=== PATIENT | female | born 1975 | race Caucasian/White ===

== ENCOUNTER 2020-01-25 10:53 | Inpatient (IN) | payer BC, SELFPAY ==
[2020-01-25] VITALS (69 sets, daily range): BP systolic 103–130; BP diastolic 67–95; PULSE 79–120; RESP 14–39; TEMP 37.3–38.8; O2SAT 87–98; BMI 26.5
--- NOTE | 2020-01-25 11:09 | ED_ITS ---
HPI - SOB/Dyspnea General: Chief Complaint: Shortness of Breath/Dyspnea Stated Complaint: Coughing/lung pain/chest pains Time Seen by Provider: 01/25/20 10:58 History of Present Illness: HPI Narrative: 44-year-old female presents emergency room with acute shortness of breath. Her initial symptoms began about 8 to 10 days ago after she had picked up her daughter from college. [employer] close due to the [place] pandemic. Her daughter was sick for just a couple of days. Her daughter has not been tested neither is anyone in her family her is also been sick with a low-grade fever and a mild cough. Her cough is gotten progressively worse to the point where she was extremely dyspneic on arrival here was also hypoxic with a O2 sat in the mid 80s requiring 2 to 3 L by nasal cannula which raised her sats up to 92-94. She reports a fever at home of up to 101-103 and a nonproductive cough. She has no other underlying medical history no history respiratory coronary artery disease no history of any kind of cardiac issues. MD elicited complaint: shortness of breath and cough (Nonproductive) Associated symptoms: Reports chest congestion and orthopnea; Deny abdominal pain, chest pain, fever(s), nausea or vomiting Review of Systems Const: Denies: fever, chills, body aches, change in appetite, fatigue or malaise ENMT: Denies: throat pain, ear pain, nasal discharge or nasal congestion Card: Reports: shortness of breath on exertion and shortness of breath when lying down; Denies: chest pain or edema Resp: Reports: shortness of breath, non-productive cough, wheezing and chest congestion; Denies: productive cough GI: Denies: abdominal pain, nausea, vomiting, vomiting blood, coffee grounds in vomit, diarrhea, constipation, bloating, blood in stool or black tarry stool : Denies: flank pain, difficulty urinating, painful urination, urinary frequency or urinary urgency Skin/Breast: Denies: rash or itching [facility] ED PFSH: Social History (Updated 01/25/20 @ 14:19 by Yevgeniy Nevarez MD) Smoking and tobacco status: never smoked Alcohol intake: never Substance/Drug Use: never Physical Exam Const: COMMON NORMALS: no apparent distress GENERAL APPEARANCE: cooperative and comfortable ORIENTATION/CONSCIOUSNESS: Yes awake, Yes oriented to person, Yes oriented to place and Yes oriented to time HENMT: COMMON NORMALS: normocephalic, head/scalp atraumatic, hearing grossly normal bilaterally, external ears normal, EAC's normal, TM's normal bilaterally, nasal mucous membranes and turbinates normal, moist oral mucous membranes and oropharynx normal HEAD & SCALP: normocephalic and atraumatic NOSE: nasal mucous membranes and turbinates normal EXTERNAL EAR: Yes external ears normal EXTERNAL AUDITORY CANAL: EAC's normal TYMPANIC MEMBRANE: TM's normal bilaterally Eye: COMMON NORMALS: PERRL, EOMs intact bilaterally, conjunctivae normal and no scleral icterus CONJUNCTIVA: Yes conjunctivae normal PUPIL: Yes PERRL Neck/C-Spine: COMMON NORMALS: full ROM, no lymphadenopathy, supple and no JVD Lymph: LYMPHATIC: no lymphadenopathy noted and no lymphedema noted Resp: COMMON NORMALS: normal respiratory effort, no retractions and no use of accessory muscles EFFORT & INSPECTION: Yes tachypneic, Yes respiratory distress, Yes labored, Yes actively coughing and Yes audible wheezes AUSCULTATION: rhonchi and wheezes Cardio: COMMON NORMALS: no JVD, regular rhythm and no murmurs RATE: tachycardic RHYTHM: regular rhythm GI: COMMON NORMALS: soft to palpation and no hepatosplenomegaly AUSCULTATION: Yes normoactive bowel sounds PALPATION: Yes soft, No tender, No guarding and Yes no hepatosplenomegaly Extremity: COMMON NORMALS: normal to inspection, normal capillary refill, no clubbing, cyanosis or edema, no calf tenderness and no pedal edema Neuro: SENSORIUM/ORIENTATION: Yes oriented to person, Yes oriented to place and Yes oriented to time Skin: COMMON NORMALS: no rashes or lesions noted GENERAL SKIN EXAM: no rashes or lesions noted Course Vital Signs: Vital signs: Vital Signs Temperature 98.2 F 01/27/20 00:00 Pulse Rate 69 01/27/20 06:00 Respiratory Rate 33 H 01/27/20 06:00 Blood Pressure 118/81 01/27/20 06:00 Pulse Oximetry 97 01/27/20 06:00 MDM - SOB/Dyspnea Lab Data: Labs: Lab Results 01/25/20 01/25/20 01/25/20 Range/Units 11:40 11:40 11:40 WBC 6.5 (4.0-10.0) 10^3/ uL RBC 4.31 (4.1-5.3) 10^6/u L Hgb 13.6 (11.5-15.3) g/dL Hct 40.8 (37.0-47.0) % MCV 94.7 (81-99) fL MCH 31.6 (28.0-34.0) pg MCHC 33.3 (30.0-36.0) g/dL RDW 11.9 L (12.1-15.1) % Plt Count 204 (130-400) 10^3/c mm MPV 11.6 H (7.4-10.4) fL Neut % (Auto) 82.2 % Lymph % (Auto) 12.5 % Piute % (Auto) 4.3 % Eos % (Auto) 0.0 % Baso % (Auto) 0.2 % Neut # (Auto) 5.4 (1.8-7.7) 10^3/u L Lymph # (Auto) 0.8 (0.8-4.8) 10^3/u L Pi[place] # (Auto) 0.3 (0.2-0.9) 10^3/u L Eos # (Auto) 0.0 (0.0-0.8) 10^3/u L Baso # (Auto) 0.0 (0.0-0.1) 10^3/u L Nucleated RBC % (a uto) 0 % Nucleated RBCs # 0.0 /100WBC D-Dimer 2.54 H (0-0.59) ug/mIFE U Specimen Type Sample Site ABG pH (7.35-7.45) ABG pCO2 (35-45) mmHg ABG pO2 (80.0-100.0) mmH g ABG HCO3 (22-26) mmol/L ABG Base Excess (-2.0-2.0) mmol/ L Branden Test Hematocrit (37-47) % O2 Delivery Device O2 Liters/Min % Paralegal Specialist ID Sodium 132 L (136-145) mmol/L Potassium 4.0 (3.5-5.1) mmol/L Chloride 91 L (98-107) mmol/L Carbon Dioxide 23 (22-29) mmol/L Anion Gap 22.0 H (5-19) BUN 15 (6-20) mg/dL Creatinine 1.1 H (0.5-0.9) mg/dL GFR Calculation 54.2 L (90-130) mL/min Glucose 111 (65-115) mg/dL Calculated Osmolal ity 271 L (285-295) mOsm/k g Lactic Acid (0.5-2.2) mmol/L Calcium 9.8 (8.5-10.5) mg/dL Magnesium 2.2 (1.7-2.3) mg/dL Ferritin 1777 H (15-150) ng/mL Total Bilirubin 0.5 (0.15-1.2) mg/dL AST 27 (0-32) U/L ALT 12 (0-33) U/L Alkaline Phosphata se 62 (35-105) IU/L Lactate Dehydrogen ase 371 H (135-214) U/L Creatine Kinase 75 (26-192) U/L Total Protein 8.4 (6.6-8.7) g/dL Albumin 3.8 (3.5-5.2) g/dL Globulin 4.6 (1.3-4.6) g/dL HCG, Qual (Negative) Nasal/Oral COVID-1 9 PCR Influenza Type A A g (Negative) Influenza Type B A g (Negative) 01/25/20 01/25/20 01/25/20 Range/Units 11:40 11:40 11:41 WBC (4.0-10.0) 10^3/ uL RBC (4.1-5.3) 10^6/u L Hgb (11.5-15.3) g/dL Hct (37.0-47.0) % MCV (81-99) fL MCH (28.0-34.0) pg MCHC (30.0-36.0) g/dL RDW (12.1-15.1) % Plt Count (130-400) 10^3/c mm MPV (7.4-10.4) fL Neut % (Auto) % Lymph % (Auto) % Piute % (Auto) % Eos % (Auto) % Baso % (Auto) % Neut # (Auto) (1.8-7.7) 10^3/u L Lymph # (Auto) (0.8-4.8) 10^3/u L Piute # (Auto) (0.2-0.9) 10^3/u L Eos # (Auto) (0.0-0.8) 10^3/u L Baso # (Auto) (0.0-0.1) 10^3/u L Nucleated RBC % (a uto) % Nucleated RBCs # /100WBC D-Dimer (0-0.59) ug/mIFE U Specimen Type Arterial Sample Site Radial, left ABG pH 7.54 H (7.35-7.45) ABG pCO2 24.5 L (35-45) mmHg ABG pO2 102.0 H (80.0-100.0) mmH g ABG HCO3 21.0 L (22-26) mmol/L ABG Base Excess 0.0 (-2.0-2.0) mmol/ L Branden Test Pos Hematocrit 41.4 (37-47) % O2 Delivery Device Nc O2 Liters/Min 1.5 % Paralegal Specialist ID cak Sodium (136-145) mmol/L Potassium (3.5-5.1) mmol/L Chloride (98-107) mmol/L Carbon Dioxide (22-29) mmol/L Anion Gap (5-19) BUN (6-20) mg/dL Creatinine (0.5-0.9) mg/dL GFR Calculation (90-130) mL/min Glucose (65-115) mg/dL Calculated Osmolal ity (285-295) mOsm/k g Lactic Acid 1.8 (0.5-2.2) mmol/L Calcium (8.5-10.5) mg/dL Magnesium (1.7-2.3) mg/dL Ferritin (15-150) ng/mL Total Bilirubin (0.15-1.2) mg/dL AST (0-32) U/L ALT (0-33) U/L Alkaline Phosphata se (35-105) IU/L Lactate Dehydrogen ase (135-214) U/L Creatine Kinase (26-192) U/L Total Protein (6.6-8.7) g/dL Albumin (3.5-5.2) g/dL Globulin (1.3-4.6) g/dL HCG, Qual Negative (Negative) Nasal/Oral COVID-1 9 PCR Influenza Type A A g (Negative) Influenza Type B A g (Negative) 01/25/20 01/25/20 Range/Units 11:48 11:48 WBC (4.0-10.0) 10^3/ uL RBC (4.1-5.3) 10^6/u L Hgb (11.5-15.3) g/dL Hct (37.0-47.0) % MCV (81-99) fL MCH (28.0-34.0) pg MCHC (30.0-36.0) g/dL RDW (12.1-15.1) % Plt Count (130-400) 10^3/c mm MPV (7.4-10.4) fL Neut % (Auto) % Lymph % (Auto) % Piute % (Auto) % Eos % (Auto) % Baso % (Auto) % Neut # (Auto) (1.8-7.7) 10^3/u L Lymph # (Auto) (0.8-4.8) 10^3/u L [place] # (Auto) (0.2-0.9) 10^3/u L Eos # (Auto) (0.0-0.8) 10^3/u L Baso # (Auto) (0.0-0.1) 10^3/u L Nucleated RBC % (a uto) % Nucleated RBCs # /100WBC D-Dimer (0-0.59) ug/mIFE U Specimen Type Sample Site ABG pH (7.35-7.45) ABG pCO2 (35-45) mmHg ABG pO2 (80.0-100.0) mmH g ABG HCO3 (22-26) mmol/L ABG Base Excess (-2.0-2.0) mmol/ L Branden Test Hematocrit (37-47) % O2 Delivery Device O2 Liters/Min % Paralegal Specialist ID Sodium (136-145) mmol/L Potassium (3.5-5.1) mmol/L Chloride (98-107) mmol/L Carbon Dioxide (22-29) mmol/L Anion Gap (5-19) BUN (6-20) mg/dL Creatinine (0.5-0.9) mg/dL GFR Calculation (90-130) mL/min Glucose (65-115) mg/dL Calculated Osmolal ity (285-295) mOsm/k g Lactic Acid (0.5-2.2) mmol/L Calcium (8.5-10.5) mg/dL Magnesium (1.7-2.3) mg/dL Ferritin (15-150) ng/mL Total Bilirubin (0.15-1.2) mg/dL AST (0-32) U/L ALT (0-33) U/L Alkaline Phosphata se (35-105) IU/L Lactate Dehydrogen ase (135-214) U/L Creatine Kinase (26-192) U/L Total Protein (6.6-8.7) g/dL Albumin (3.5-5.2) g/dL Globulin (1.3-4.6) g/dL HCG, Qual (Negative) Nasal/Oral COVID-1 9 PCR Detected Influenza Type A A g Negative (Negative) Influenza Type B A g Negative (Negative) Discharge Plan Discharge Patient Disposition: Admitted As Inpatient Admit Provider: Yevgeniy Nevarez Clinical Impression: COVID-19 virus infection, Pneumonia Condition: Stable Interventions: ED Discharge Assessment Last Done: 01/25/20 14:07 Discharge Date/Time: 01/25/20 14:30 Coding Level of Care Code 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
--- NOTE | 2020-01-25 11:12 | XR_ITS ---
WS: [id number] CHEST XRAY TECHNIQUE: Portable chest. CLINICAL INFORMATION: dyspnea COMPARISON: None. FINDINGS: Shallow inspiration. Heart: Normal cardiac silhouette. Lungs: Bilateral patchy perihilar and left lower lobe infiltrates. Subsegmental atelectasis right upp er lobe. Recommend correlation for pneumonia. No focal consolidation. Bones: Mild thoracic curve convex right. XR/XR chest 1V portable [id number] IMPRESSION: 1. Bilateral patchy perihilar and left lower lobe infiltrates. Recommend corre lation for pneumonia. 2. No focal consolidation. 3. Normal cardiac silhouette.
[2020-01-25 11:51] LABS: ABG PCO2 24.5 mmHg (35-45); ABG PH Result 7.54 (7.35-7.45); Arterial Blood Gas Hematocrit 41.4 % (37-47); Blood Gas Allen Test Pos; Blood Gas LPM 1.5 %; Blood Gas Sample Site Radial, left; Blood Gas Sample Type Arterial; Oxygen Device NC
[2020-01-25 11:59] LABS: Basophils % 0.2 %; Hematocrit 40.8 % (37.0-47.0); Hemoglobin 13.6 g/dL (11.5-15.3); Lymphocytes # 0.8 10^3/uL (0.8-4.8); Lymphocytes % 12.5 %; Mean Corpuscular HGB Conc 33.3 g/dL (30.0-36.0); Mean Corpuscular Hemoglobin 31.6 pg (28.0-34.0); Mean Corpuscular Volume 94.7 fL (81-99); Mean Platelet Volume 11.6 fL (7.4-10.4); Monocytes # 0.3 10^3/uL (0.2-0.9); Monocytes % 4.3 %; Neutrophils # 5.4 10^3/uL (1.8-7.7); Neutrophils % 82.2 %; Nucleated Red Blood Cells % 0 %; Platelet Count 204 10^3/cmm (130-400); Red Blood Count 4.31 10^6/uL (4.1-5.3); Red Cell Distribution Width 11.9 % (12.1-15.1); White Blood Count 6.5 10^3/uL (4.0-10.0)
[2020-01-25] MEDS: sodium chloride 0.9% 1,000 ML 75 ML IV ×2 (12:00→15:19)
[2020-01-25 12:14] LABS: D Dimer 2.54 ug/mIFEU (0-0.59)
[2020-01-25 12:17] LABS: Lactic Sepsis W/Reflex 1.8 mmol/L (0.5-2.2)
[2020-01-25 12:18] LABS: Alanine Aminotransferase 12 U/L (0-33); Albumin Level 3.8 g/dL (3.5-5.2); Alkaline Phosphatase 62 IU/L (35-105); Aspartate Amino Transferase 27 U/L (0-32); Blood Urea Nitrogen 15 mg/dL (6-20); Calcium 9.8 mg/dL (8.5-10.5); Carbon Dioxide 23 mmol/L (22-29); Chloride 91 mmol/L (98-107); Creatine Phosphokinase 75 U/L (26-192); Globulin 4.6 g/dL (1.3-4.6); Glomerular Filtration Rate 54.2 mL/min (90-130); Glucose 111 mg/dL (65-115); Lactate Dehydrogenase 371 U/L (135-214); Magnesium 2.2 mg/dL (1.7-2.3); Osmolality Calculated 271 mOsm/kg (285-295); Sodium 132 mmol/L (136-145); Total Bilirubin 0.5 mg/dL (0.15-1.2); Total Protein 8.4 g/dL (6.6-8.7)
[2020-01-25 12:29] LABS: Influenza A by IFA Negative (Negative); Influenza B by IFA Negative (Negative)
[2020-01-25 12:30] LABS: Ferritin 1777 ng/mL (15-150)
[2020-01-25 13:52] LABS: HCG, Serum Qual Negative (Negative)
--- NOTE | 2020-01-25 13:59 | PM.HP ---
Providers/Chief Complaint Admitting Physician: Yevgeniy Nevarez MD Primary Care Provider: Clau Arrington DO Chief Complaint: Coughing/lung pain/chest pains History of Present Illness Chio Mclean is a 44 year old female who presents to the hospital with complaints of fever, shortness of breath, cough. She reports she has been ill for at least 7 to 10 days. She reports body aches, cough that is usually not productive, chest discomfort with coughing, full body aches. She reports she has been exposed to her daughter who was ill previous to her who had exposure to other college students testing positive for Covid 19. is also been ill with symptoms. She reports her shortness of breath was worsening and that prompted her to come in. She has not been eating as well. She has been drinking fluids better in the last day. Review of Systems General: Reports: 10 or more systems reviewed and unremarkable except in HPI and below Const: Reports: fever, chills, body aches, change in appetite, fatigue, malaise, night sweats and diaphoresis Eyes: Denies: change in vision ENMT: Denies: throat pain Card: Reports: chest pain (Only with movement, coughing) Resp: Reports: shortness of breath and non-productive cough GI: Denies: abdominal pain : Denies: flank pain or difficulty urinating Musc: Denies: neck pain Skin/Breast: Denies: rash Neuro: Reports: numbness in extremities Psych: Denies: anxiety or depression Endo: Denies: excessive urination Yohan/Lymph: Denies: easy bruising All/Imm: Denies: hives Medications/Allergies Home Medications Medication Instructions Recorded Confirmed Last Taken Type No Known Home Medications 01/25/20 01/25/20 Unknown History Allergies Allergy/AdvReac Type Severity Reaction Status Date / Time No Known Allergies Allergy Verified 01/25/20 11:10 PFSH Acute PFSH: Social History (Updated 01/25/20 @ 14:19 by Yevgeniy Nevarez MD) Smoking and tobacco status: never smoked Alcohol intake: never Substance/Drug Use: never Supplemental PFSH Information: Patient denies any significant past medical history, past surgical history. She denies any significant family history and reports both parents are healthy. Vitals/I&O/Wt Last Vital Signs Temp 101.9 F H 01/25/20 11:00 Pulse 118 H 01/25/20 11:00 Resp 26 H 01/25/20 11:00 Pulse Ox 87 L 01/25/20 11:57 Weight last 48 hrs Weight 68.039 kg Physical Exam Narrative: EXAM NARRATIVE: Uncomfortable appearing white female, with mild respiratory distress with occasional cough. HEENT: Pupils equally round. Oropharynx clear. Neck is supple no lymphadenopathy or thyromegaly Cardiovascular tachycardic, no murmur Lungs few scattered rhonchi that appear to clear with coughing Abdomen is soft with positive bowel sounds. No obvious organomegaly. No tenderness. was deferred Extremities no cyanosis clubbing or edema, cap refill brisk Skin no rash Neuro no focal deficits Data : 01/25/20 11:40 01/25/20 11:40 Micro: Microbiology 01/25/20 11:42 Blood Culture - Preliminary Blood SPECIMEN COLLECTED 01/25/20 11:40 Blood Culture - Preliminary Blood SPECIMEN COLLECTED Other data: D-dimer is elevated at 2.54 pH 7.54, PCO2 24, PO2 102. Elevated ferritin at 1777 Elevated LDH at 371 Influenza swab negative hCG negative Chest x-ray shows bilateral lower lobe infiltrates, no consolidation, plate-like atelectasis right upper lobe A&P Assessment and plan (1) Pneumonia: Very concerning that this may be a case of Covid 19. Chest x-ray demonstrates bilateral infiltrates. Right upper lobe platelet atelectasis. White blood cell count normal with borderline lymphopenia. Liver function tests are normal. Acute phase reactants are elevated. LDH elevated. Covid 19 test is pending Influenza negative At this point linezolid, Levaquin, Zosyn have been started in the ER. I will continue Zosyn. Add Plaquenil, Zithromax. Monitor QT interval. Discussed briefly with pulmonary. Covid 19 isolation precautions Check EKG Consider Plaquenil, doxycycline. Hydration We will try to avoid nebulized treatments Supplemental oxygen as needed Check viral PCR. Status: Acute (2) Respiratory failure: Secondary to above Status: Acute (3) Acute kidney injury: Will hydrate. Repeat laboratory in the morning Status: Acute Attestations Medical Necessity Statement*: Will need greater than 2 midnight stay for IV antibiotics secondary to pneumonia Time Spent in Patient Care: Greater than 35 minutes Coding Level of Care Code Acute Manager [employer] Fwd Diagnoses Pneumonia J18.9 Respiratory failure J96.90 Acute kidney injury N17.9
[2020-01-25] MEDS: levofloxacin-dextrose 5 % 750 MG/150 ML PREMIX 150 MG IV (14:00)
[2020-01-25] MEDS: linezolid premix 600 MG/300 ML PREMIX 300 MG IV (14:00)
--- NOTE | 2020-01-25 14:10 | ECG_ITS ---
Measurements Intervals [place] Rate: 95 P: 32 [place]: 153 QRS: -24 QRSD: 109 T: 21 QT: 359 QTc: 452 SINUS RHYTHM BORDERLINE LEFT AXIS DEVIATION [QRS AXIS < -20] LOW QRS VOLTAGE IN PRECORDIAL LEADS [QRS DEFLECTION < 1.0 mV IN CHEST LEADS] PATTERN CONSISTENT WITH PULMONARY DISEASE WARNING: DATA QUALITY MAY AFFECT INTERPRETATION No previous ECG available for comparison Electronically Signed On 01-25-2020 18:36:45 CDT by Ethel Armstrong M.D. [id number]
[2020-01-25] MEDS: enoxaparin 40 mg/0.4 mL Syringe SUBCUT (15:19)
[2020-01-25] MEDS: azithromycin 250 mg Tablet 500 MG PO (15:19)
[2020-01-25] MEDS: piperacillin-tazobactam 3.375 GM in sodium chloride 0.9% (plus) 50 ML IV ×2 (15:19→23:17)
[2020-01-25] MEDS: hydroxychloroquine 200 mg Tablet 400 MG PO (15:40)
[2020-01-25] MEDS: albuterol 8 gm MDI 2 PUFF INHALATION (15:45)
[2020-01-25] MEDS: acetaminophen 325 mg Tablet 650 MG PO (21:50)
[2020-01-26] VITALS (22 sets, daily range): BP systolic 104–128; BP diastolic 69–85; PULSE 71–96; RESP 19–39; TEMP 36.8–36.9; O2SAT 91–99
[2020-01-26] MEDS: hydroxychloroquine 200 mg Tablet 400 MG PO (01:54)
[2020-01-26] MEDS: guaiFENesin 100 mg/5 mL UDC 10 mL 400 MG PO (01:54)
[2020-01-26 04:55] LABS: Hematocrit 33.5 % (37.0-47.0); Hemoglobin 11.1 g/dL (11.5-15.3); Lymphocytes # 0.7 10^3/uL (0.8-4.8); Lymphocytes % 19.4 %; Mean Corpuscular HGB Conc 33.1 g/dL (30.0-36.0); Mean Corpuscular Hemoglobin 32.5 pg (28.0-34.0); Mean Platelet Volume 10.8 fL (7.4-10.4); Monocytes # 0.3 10^3/uL (0.2-0.9); Monocytes % 7.5 %; Neutrophils # 2.6 10^3/uL (1.8-7.7); Neutrophils % 72.3 %; Nucleated Red Blood Cells % 0 %; Platelet Count 171 10^3/cmm (130-400); Red Blood Count 3.42 10^6/uL (4.1-5.3); Red Cell Distribution Width 12.1 % (12.1-15.1); White Blood Count 3.6 10^3/uL (4.0-10.0)
[2020-01-26 05:25] LABS: Anion Gap 15.9 (5-19); Blood Urea Nitrogen 10 mg/dL (6-20); Carbon Dioxide 24 mmol/L (22-29); Chloride 98 mmol/L (98-107); Glomerular Filtration Rate 68.3 mL/min (90-130); Glucose 102 mg/dL (65-115); Osmolality Calculated 274 mOsm/kg (285-295); Potassium 3.9 mmol/L (3.5-5.1); Sodium 134 mmol/L (136-145)
[2020-01-26 06:07] LABS: Slide Review Slide Review Perform
[2020-01-26] MEDS: sodium chloride 0.9% 1,000 ML 75 ML IV (06:07)
[2020-01-26] MEDS: piperacillin-tazobactam 3.375 GM in sodium chloride 0.9% (plus) 50 ML IV (06:09)
--- NOTE | 2020-01-26 07:42 | PC.NURSE ---
Pt up to BSC, pt became SOB. Pt returned to bed in prone position.
[2020-01-26 08:01] LABS: Coronavirus Lab Test PTC DETECTED
--- NOTE | 2020-01-26 09:21 | P.PN_ITS ---
Subjective Subjective: Interval history: Patient awake in bed at time of exam this morning. She reported shortness of breath with any movement. She is unable to walk short distances without having coughing spells. Reports fever, dry cough and body aches. She noted symptoms began over 7 days ago. Cough has been present for many days. She reports no past medical problems, denies taking any medications at home. She noted that she has been feeling poorly but kept putting off coming to the hospital but became so short of breath that she could not stay at home longer. Vitals/I&O/Wt Last Vital Signs Temp 98.2 F 01/26/20 05:00 Pulse 87 01/26/20 08:23 Resp 20 H 01/26/20 08:23 BP 104/81 01/26/20 06:00 Pulse Ox 96 01/26/20 08:23 01/25/20 01/26/20 01/26/20 22:59 06:59 14:59 Intake Total 598.75 / 598.75 1050 / 1648.75 Output Total 800 / 800 300 / 300 Balance 598.75 / 598.75 250 / 848.75 -300 / -300 Weight last 48 hrs Weight 68.039 kg Physical Exam 2 Const: COMMON NORMALS: oriented x3 GENERAL APPEARANCE: cooperative and ill appearing ORIENTATION/CONSCIOUSNESS: Yes awake, Yes oriented to person, Yes oriented to place and Yes oriented to time HENMT: COMMON NORMALS: normocephalic and head/scalp atraumatic HEAD & SCALP: normocephalic and atraumatic Eye: COMMON NORMALS: PERRL PUPIL: Yes PERRL Neck/C-Spine: COMMON NORMALS: supple GENERAL: Yes normal visual inspection Resp: EFFORT & INSPECTION: Yes symmetric chest movement, Yes tachypneic and Yes actively coughing AUSCULTATION: no rhonchi and no wheezes Cardio: COMMON NORMALS: regular rate, regular rhythm and no murmurs RATE: regular rate RHYTHM: regular rhythm GI: COMMON NORMALS: soft to palpation and non-tender INSPECTION: No abdom inal distension AUSCULTATION: Yes normoactive bowel sounds PALPATION: Yes soft Extremity: COMMON NORMALS: no clubbing, cyanosis or edema and no calf tenderness Neuro: COMMON NORMALS: oriented x3, CN's II-XII intact bilaterally, moves all extremities and no focal motor deficits SENSORIUM/ORIENTATION: Yes oriented to person, Yes oriented to place and Yes oriented to time SPEECH: speech normal Psych: COMMON NORMALS: mental status grossly normal and cooperative Skin: COMMON NORMALS: no rashes or lesions noted GENERAL SKIN EXAM: no rashes or lesions noted Data : 01/26/20 04:11 01/26/20 04:11 Micro: Microbiology 01/25/20 11:42 Blood Culture - Preliminary Blood SPECIMEN COLLECTED 01/25/20 11:40 Blood Culture - Preliminary Blood SPECIMEN COLLECTED A&P Assessment and plan (1) COVID-19 virus infection: COVID-19 PCR returned positive Patient with fever, cough, shortness of breath with any exertion and hypoxia Requiring 2L by NC at this time and remains tachypnic Continue on Plaquenil, given 400mg q12h for 1 day and will transition to 200mg q12hr now Given Azithromycin on admission, QT interval within normal limits at this time. Repeat EKG today and continue azithromycin at 250mg pending ekg results Continue supportive care Status: Acute (2) Respiratory failure: secondary to COVID 19 viral pnuemonia Continue oxygen per protocol Albuterol PRN Plan for treatment as above Continue with self proning intermittently Status: Acute (3) Pneumonia: Viral pneumonia as above, will discontinue Zosyn at this time Status: Acute Additional A&P Information DVT ppx: Lovenox Diet: Regular diet Code status: Full code Attestations Medical Necessity Statement*: Requires hospitalization due to viral pneumonia with COVID-19, hypoxia and respiratory distress Coding Level of Care Code Acute 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
--- NOTE | 2020-01-26 09:23 | PC.NURSE ---
Patient transported from ICU room 6 to VICU room 1. Moved via bed with Dr. Burger at bedside for transport. Patient A&O,2L NC. Sats 94%. Coughing noted with exertion. Once into VICU, patient transferred from bed to [facility] and placed on monitors. Full diet breakfast tray given to patient, patient sitting up in bed eating without difficulty. Call button in reach.
--- NOTE | 2020-01-26 09:30 | PC.NURSE ---
Patient is not in distress at present time but breathing is noted to be labored. At rest it is not noticeable, but with any exertion work of breathing becomes difficult.
--- NOTE | 2020-01-26 09:32 | PC.NURSE ---
Patient c/o feeling achy intermittently but rates current pain level at 0.
--- NOTE | 2020-01-26 09:52 | ECG_ITS ---
Measurements Intervals [place] Rate: 83 P: 27 OR: 156 QRS: -24 QRSD: 118 T: 3 QT: 375 QTc: 441 SINUS RHYTHM LOW QRS VOLTAGE IN PRECORDIAL LEADS [QRS DEFLECTION < 1.0 mV IN CHEST LEADS] INCOMPLETE RIGHT BUNDLE BRANCH BLOCK [90+ ms QRS DURATION, TERMINAL R IN V1/V2, 40+ ms S IN I/aVL/V4/V5/V6] POSSIBLE ANTERIOR MYOCARDIAL INFARCTION [30 ms Q WAVE IN V3/V4, OR R < 0.2 mV IN V4 V4], PROBABLY OLD Compared to ECG 01/25/2020 17:33:44 Incomplete right bundle-branch block now present Myocardial infarct finding now present Electronically Signed On 01-27-2020 18:05:26 CDT by Bruna Lux M.D. [id number]
--- NOTE | 2020-01-26 11:29 | PC.NURSE ---
Patient from [facility] to [facility] [place] with moderate assistance. Tolerated activity fair. Requests one Tylenol. Will administer medication when received from pharmacy.
[2020-01-26] MEDS: acetaminophen 325 mg Tablet PO ×4 (11:30→22:25)
--- NOTE | 2020-01-26 12:54 | PC.NURSE ---
Patient sat up in bed to feed self lunch. Tolerated well. Awake and watching tv now. Had good appetite for lunch.
[2020-01-26] MEDS: enoxaparin 40 mg/0.4 mL Syringe SUBCUT (14:30)
[2020-01-26] MEDS: hydroxychloroquine 200 mg Tablet PO (14:30)
--- NOTE | 2020-01-26 15:29 | PC.NURSE ---
Medications given after verification of wrist band and five rights.
--- NOTE | 2020-01-26 16:47 | PC.NURSE ---
Patient is in prone position. Tolerating well.
--- NOTE | 2020-01-26 18:08 | PC.NURSE ---
Sitting up in bed eating dinner without difficulty. Has had intermittent coughing spells with sats temporarily decreasing as low as upper 70s or a few seconds then returning to baseline.
--- NOTE | 2020-01-26 19:00 | PC.NURSE ---
Shift Change Pt in bed w/ report of headache, tylenol administered. Pt sating mid 90's on 2L nc. Other VSS, afebrile - charted. Pt had exertional sob when getting up to bsc, desating to high 80's - pt recovered quickly. C/O chest pressure with HOB less than 45 degrees. Pt coughing has improved since prior noc shift. Will continue to monitor. Oral care performed by pt.
[2020-01-27] VITALS (39 sets, daily range): BP systolic 97–132; BP diastolic 67–94; PULSE 61–85; RESP 2–39; TEMP 36.3–36.9; O2SAT 90–98
--- NOTE | 2020-01-27 01:06 | PC.NURSE ---
No change in pt status at this time. Repositioned frequently due to bed/comfort.
[2020-01-27] MEDS: hydroxychloroquine 200 mg Tablet PO ×2 (02:46→15:13)
[2020-01-27 04:36] LABS: Basophils % 0.4 %; Eosinophils % 1.6 %; Hematocrit 32.9 % (37.0-47.0); Hemoglobin 10.9 g/dL (11.5-15.3); Lymphocytes % 40.4 %; Mean Corpuscular HGB Conc 33.1 g/dL (30.0-36.0); Mean Corpuscular Hemoglobin 32.2 pg (28.0-34.0); Mean Corpuscular Volume 97.1 fL (81-99); Mean Platelet Volume 10.7 fL (7.4-10.4); Monocytes # 0.3 10^3/uL (0.2-0.9); Monocytes % 13.2 %; Neutrophils # 1.1 10^3/uL (1.8-7.7); Neutrophils % 42.8 %; Nucleated Red Blood Cells % 0 %; Platelet Count 191 10^3/cmm (130-400); Red Blood Count 3.39 10^6/uL (4.1-5.3); Red Cell Distribution Width 12.4 % (12.1-15.1); White Blood Count 2.5 10^3/uL (4.0-10.0)
[2020-01-27] MEDS: TRAMadol 50 mg Tablet PO ×2 (04:44→20:14)
[2020-01-27 04:56] LABS: Creatine Phosphokinase 52 U/L (26-192)
[2020-01-27 04:57] LABS: D Dimer 1.17 ug/mIFEU (0-0.59)
[2020-01-27 05:00] LABS: Anion Gap 17.8 (5-19); Blood Urea Nitrogen 7 mg/dL (6-20); Calcium 9.2 mg/dL (8.5-10.5); Carbon Dioxide 24 mmol/L (22-29); Chloride 101 mmol/L (98-107); Glomerular Filtration Rate 91.3 mL/min (90-130); Glucose 100 mg/dL (65-115); Lactate Dehydrogenase 283 U/L (135-214); Osmolality Calculated 284 mOsm/kg (285-295); Potassium 3.8 mmol/L (3.5-5.1); Sodium 139 mmol/L (136-145)
[2020-01-27 05:37] LABS: Ferritin 1604 ng/mL (15-150)
[2020-01-27 05:45] LABS: Slide Review Slide Review Perform
--- NOTE | 2020-01-27 07:28 | PC.NURSE ---
Upon initial assessment, patient found to be resting in bed with eyes closed. Is drowsy. Oriented. Answers questions appropriately. Doesn't feel up to eating breakfast right now but tray left at bedside. Upper lung sounds seem to be slightly better than compared to yesterday. Call light in reach. ore feeder nursing reports patient did well overall but did become SOB during minimal exertion with one episode taking approx 20 minutes to recover to baseline.
[2020-01-27] MEDS: acetaminophen 325 mg Tablet PO (08:53)
[2020-01-27] MEDS: tizanidine 4 mg Tablet 2 MG PO ×2 (08:54→17:00)
--- NOTE | 2020-01-27 13:32 | PM.PN ---
Subjective Subjective: Interval history: Patient evaluated several times this morning. Awake this morning at time of initial exam. Reported continued dry cough, but feels more productive when sitting up. Reports headache that is related to muscle tightness in her neck. Overnight reported to be afebrile, had desaturation when getting up to bedside commode and had to be increased to 4L by NC This afternoon patient up to bedside commode and patient had desaturation with 2L by NC in place to 82%. Vitals/I&O/Wt Last Vital Signs Temp 98.2 F 01/27/20 00:00 Pulse 64 01/27/20 10:00 Resp 25 H 01/27/20 10:00 BP 108/85 01/27/20 10:00 Pulse Ox 98 01/27/20 10:00 01/26/20 01/27/20 01/27/20 22:59 06:59 14:59 Intake Total 100 / 1100 500 / 500 Output Total 500 / 1050 300 / 1350 Balance -400 / 50 -300 / -250 500 / 500 Physical Exam Const: COMMON NORMALS: oriented x3 GENERAL APPEARANCE: cooperative and ill appearing ORIENTATION/CONSCIOUSNESS: Yes awake, Yes oriented to person, Yes oriented to place and Yes oriented to time HENMT: COMMON NORMALS: normocephalic and head/scalp atraumatic HEAD & SCALP: normocephalic and atraumatic Eye: COMMON NORMALS: PERRL PUPIL: Yes PERRL Neck/C-Spine: COMMON NORMALS: supple GENERAL: Yes normal visual inspection Resp: EFFORT & INSPECTION: Yes symmetric chest movement, Yes tachypneic and Yes actively coughing AUSCULTATION: no rhonchi and no wheezes Cardio: COMMON NORMALS: regular rate, regular rhythm and no murmurs RATE: regular rate RHYTHM: regular rhythm GI: COMMON NORMALS: soft to palpation and non-tender INSPECTION: No abdominal distension AUSCULTATION: Yes normoactive bowel sounds PALPATION: Yes soft Extremity: COMMON NORMALS: no clubbing, cyanosis or edema and no calf tenderness Neuro: COMMON NORMALS: oriented x3, CN's II-XII intact bilaterally, moves all extremities and no focal motor deficits SENSORIUM/ORIENTATION: Yes oriented to person, Yes oriented to place and Yes oriented to time SPEECH: speech normal Psych: COMMON NORMALS: mental status grossly normal and cooperative Skin: COMMON NORMALS: no rashes or lesions noted GENERAL SKIN EXAM: no rashes or lesions noted Data : 01/27/20 04:05 01/27/20 04:05 Micro: Microbiology 01/25/20 11:42 Blood Culture - Preliminary Blood NEGATIVE TO DATE 01/25/20 11:40 Blood Culture - Preliminary Blood NEGATIVE TO DATE A&P Assessment and plan (1) COVID-19 virus infection: COVID-19 PCR returned positive Tachypnea improved at rest, however with any exertion has desaturations. Increased to 4L by NC after minimal movements and takes time to recover and then wean oxygen as tolerated Continue on Plaquenil, given 400mg q12h for 1 day and transitioned to 200mg q12h. Discussed this medication with patient and she agrees to continue on this treatment, discussed risks and benefits. Continue other supportive care Repeat ferritin, LDH, D-dimer today all showing minimal improvement Status: Acute (2) Respiratory failure: secondary to COVID 19 viral pnuemonia Continue oxygen per protocol Albuterol PRN Plan for treatment as above Continue with self proning intermittently Status: Acute (3) Pneumonia: Viral pneumonia as above Status: Acute Additional A&P Information Leukopenia: likely secondary to viral illness. Will continue to monitor closely DVT ppx: Lovenox Diet: Regular diet Code status: Full code Attestations Medical Necessity Statement*: Patient requires further hospitalization due to COVID-19 viral pneumonia with hypoxia and requiring 2-4L by NC Coding Level of Care Code Acute Cut Out Stitcher for [facility] Diagnoses COVID-19 virus infection U07.1 Respiratory failure J96.90 Pneumonia J18.9
--- NOTE | 2020-01-27 13:37 | PC.NURSE ---
Patient up to bedside commode. Minimal stand by assist. Dr. Burger at bedside. Patient did become dyspneic and sats dropped to low 80s. HR increased to 110. Patient recovered easily. O2 increased to 4L. sats now hovering at 94%. Patient now back to bed sitting up feeding self lunch without difficulty. Remains afebrile.
[2020-01-27] MEDS: enoxaparin 40 mg/0.4 mL Syringe SUBCUT (14:00)
--- NOTE | 2020-01-27 15:15 | PC.NURSE ---
Patient sat up to feed self lunch. Poor appetite noted today. Dr. Burger came to bedside to perform osteopathic manipulation including muscle energy and myofascial release techniques. Patient states these maneuvers helped alot with her headache, neck pain, and aching. Patient resting in bed watching tv.
--- NOTE | 2020-01-27 18:44 | PC.NURSE ---
Patient got up to bedside commode. Tolerated fair. Sats dropped to low 80s. Recovered quickly. IS at bedside and patient has attempted IS X2 this shift. Pulling less than 500.
--- NOTE | 2020-01-27 19:00 | PC.NURSE ---
Shift change report received from Katie Edwards RN. Pt was less short of breath than previously. Sats staying up when she ambulates to bedside commode better than previously. Pt complaining of neck/shoulder pain. Pt reports Tizanidine helping pain and also helping her rest.
[2020-01-28] VITALS (36 sets, daily range): BP systolic 97–140; BP diastolic 69–95; PULSE 60–108; RESP 16–37; TEMP 36.3–36.9; O2SAT 80–98
[2020-01-28] MEDS: hydroxychloroquine 200 mg Tablet PO ×2 (03:06→15:16)
--- NOTE | 2020-01-28 04:20 | PC.NURSE ---
Pt blood drawn for lab. One stick to right AC with 22g, 10 mL drawn and divided into tubes and sent back to lab for testing. I then assisted her to bedside commode. Pt got dizzy upon sitting up on side of bed, but it passed quickly. Once she was helped back to bed, O2 sat noted to be 91% before I left the room. Pt voided approx. 150 mL.
[2020-01-28 04:30] LABS: Basophils % 0.8 %; Eosinophils # 0.1 10^3/uL (0.0-0.8); Eosinophils % 3.6 %; Hematocrit 34.1 % (37.0-47.0); Lymphocytes % 40.5 %; Mean Corpuscular HGB Conc 32.3 g/dL (30.0-36.0); Mean Corpuscular Hemoglobin 31.9 pg (28.0-34.0); Mean Corpuscular Volume 98.8 fL (81-99); Monocytes # 0.3 10^3/uL (0.2-0.9); Monocytes % 12.7 %; Neutrophils # 1.1 10^3/uL (1.8-7.7); Nucleated Red Blood Cells % 0 %; Platelet Count 219 10^3/cmm (130-400); Red Blood Count 3.45 10^6/uL (4.1-5.3); White Blood Count 2.5 10^3/uL (4.0-10.0)
[2020-01-28 04:40] LABS: D Dimer 0.69 ug/mIFEU (0-0.59)
[2020-01-28 04:42] LABS: Lactate Dehydrogenase 247 U/L (135-214)
[2020-01-28 04:43] LABS: Alanine Aminotransferase 13 U/L (0-33); Albumin Level 3.3 g/dL (3.5-5.2); Alkaline Phosphatase 48 IU/L (35-105); Anion Gap 17.1 (5-19); Aspartate Amino Transferase 16 U/L (0-32); Blood Urea Nitrogen 7 mg/dL (6-20); Calcium 9.2 mg/dL (8.5-10.5); Carbon Dioxide 27 mmol/L (22-29); Chloride 98 mmol/L (98-107); Globulin 2.8 g/dL (1.3-4.6); Glomerular Filtration Rate 109.1 mL/min (90-130); Glucose 97 mg/dL (65-115); Osmolality Calculated 282 mOsm/kg (285-295); Potassium 4.1 mmol/L (3.5-5.1); Sodium 138 mmol/L (136-145); Total Bilirubin 0.3 mg/dL (0.15-1.2); Total Protein 6.1 g/dL (6.6-8.7)
[2020-01-28 05:05] LABS: Slide Review Slide Review Perform
[2020-01-28 05:10] LABS: Ferritin 1315 ng/mL (15-150)
[2020-01-28 06:52] LABS: ABG PCO2 40.8 mmHg (35-45); ABG PH Result 7.46 (7.35-7.45); Alveolar-Arterial Oxygen Gradi 26.9 mmHg (5-10); Arterial Blood Gas Hematocrit 33.4 % (37-47); Base Excess ABG 4.9 mmol/L (-2.0-2.0); Blood Gas Allen Test Pos; Blood Gas Sample Type Arterial; Carboxyhemoglobin 0.5 %THgb (0.4-20.1); HCO3 ABG 29.2 mmol/L (22-26); HGB O2 Sat 93.7 % (95-100); Ionized Calcium Level - ABG 1.2 mmol/L (1.1-1.4); Oxygen Saturation ABG 95.1; PO2 ABG 71.6 mmHg (80.0-100.0); Potassium Level - ABG 3.5 mmol/L (3.5-5.0); Total Hemoglobin 10.9 g/dL (12-16)
--- NOTE | 2020-01-28 07:23 | PC.NURSE ---
Report received from fast food shift supervisor nursing. Upon initial assessment patient found to be sitting up in bed. A&O. States she feel better overall but still has an achy feeling and general soreness. Attempts at IS were still tolerated poorly. Continues to pull less than 500. MDI administered and patient tolerated inhaler administration better today compared to previous. Plan is to assist patient with bed bath today and if her O2 requirements allow, encourage sitting up in chair at bedside. Patient complains of intermittent nausea. Is having breakfast now. Dr. Burger at bedside.
--- NOTE | 2020-01-28 10:51 | PC.NURSE ---
Patient had a full bath and hair wash today. Tolerated well. Minimal assistance. O2 titrated up to 4L for duration of bath activities. Sats remained above 90% and patient's SOB was noticeably less compared to yesterday. Dr. Burger at bedside. Patient up to chair and is now sitting up in chair watching TV. O2 titrated back down to 2L. Patient is in good spirits today. Was able to pull 250 one time on IS. Dry intermittent cough still noted but less so than yesterday.
--- NOTE | 2020-01-28 11:56 | P.PN_ITS ---
Subjective Subjective: Interval history: Patient awake in bed at time of exam this morning. She reported headache had improved. Continued cough that feels more wet at this time. Denies any abdominal pain but reported nausea. Vitals/I&O/Wt Last Vital Signs Temp 98.1 F 01/28/20 09:00 Pulse 80 01/28/20 11:00 Resp 33 H 01/28/20 11:00 BP 114/82 01/28/20 11:00 Pulse Ox 96 01/28/20 11:00 01/27/20 01/28/20 01/28/20 22:59 06:59 14:59 Intake Total 150 / 650 450 / 1100 100 / 100 Output Total 400 / 620 150 / 770 240 / 240 Balance -250 / 30 300 / 330 -140 / -140 Physical Exam Const: COMMON NORMALS: oriented x3 GENERAL APPEARANCE: cooperative and ill appearing ORIENTATION/CONSCIOUSNESS: Yes awake, Yes oriented to person, Yes oriented to place and Yes oriented to time HENMT: COMMON NORMALS: normocephalic and head/scalp atraumatic HEAD & SCALP: normocephalic and atraumatic Eye: COMMON NORMALS: PERRL PUPIL: Yes PERRL Neck/C-Spine: COMMON NORMALS: supple GENERAL: Yes normal visual inspection Resp: EFFORT & INSPECTION: Yes symmetric chest movement and Yes actively coughing AUSCULTATION: no rhonchi and no wheezes Cardio: COMMON NORMALS: regular rate, regular rhythm and no murmurs RATE: r egular rate RHYTHM: regular rhythm GI: COMMON NORMALS: soft to palpation and non-tender INSPECTION: No abdominal distension AUSCULTATION: Yes normoactive bowel sounds PALPATION: Yes soft Extremity: COMMON NORMALS: no clubbing, cyanosis or edema and no calf tenderness Neuro: COMMON NORMALS: oriented x3, CN's II-XII intact bilaterally, moves all extremities and no focal motor deficits SENSORIUM/ORIENTATION: Yes oriented to person, Yes oriented to place and Yes oriented to time SPEECH: speech normal Psych: COMMON NORMALS: mental status grossly normal and cooperative Skin: COMMON NORMALS: no rashes or lesions noted GENERAL SKIN EXAM: no rashes or lesions noted Data : 01/28/20 04:00 01/28/20 04:00 A&P Assessment and plan (1) COVID-19 virus infection: COVID-19 PCR positive Improved ferritin, LDH, D-dimer Continue with supportive care and will continue on Plaquenil 200mg q12hr at this time Improved today, while sitting up in bed desaturation while on 2L by NC to 87%, quicker recovery today. While giving bed bath increased oxygen requirement to 4L by NC then titrated back to 2L by NC. IS at bedside, initially patient had coughing while pulling 250, now slow improvement and up to 500, will continue to increase use as tolerated Status: Acute (2) Respiratory failure: Improved secondary to COVID 19 viral pnuemonia Continue oxygen per protocol Albuterol PRN Plan for treatment as above Continue with self proning intermittently Status: Acute (3) Pneumonia: Viral pneumonia as above Status: Acute Additional A&P Information Leukopenia: likely secondary to viral illness. DVT ppx: Lovenox Diet: Regular diet Code status: Full code Attestations Medical Necessity Statement*: Patient requires further hospitalization due to COVID-19 viral pneumonia with continued hypoxemia. 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
[2020-01-28 12:37] LABS: Blood Gas Operator Identificat VOSSA
[2020-01-28] MEDS: enoxaparin 40 mg/0.4 mL Syringe SUBCUT (14:35)
[2020-01-28] MEDS: acetaminophen 325 mg Tablet PO (20:16)
--- NOTE | 2020-01-28 20:18 | PC.NURSE ---
Shift Change Pt A&O, sitting up on bed on phone. Respirations are easy, unlabored, 19 pm. Lungs are clear with better airflow. IS practiced pt began coughing, will try again. Cough has diminished. O2 dropped to 86% during turning repositioning, pt recovered to 94% on 1L NC within less than than 2 minutes. Pt in good spirits, states she feels better but headache has started - Tylenol administered.
[2020-01-29] VITALS (29 sets, daily range): BP systolic 94–133; BP diastolic 69–96; PULSE 63–94; RESP 12–32; TEMP 36.3–37.2; O2SAT 90–963
[2020-01-29] MEDS: hydroxychloroquine 200 mg Tablet PO ×2 (03:19→14:37)
--- NOTE | 2020-01-29 03:28 | PC.NURSE ---
Pt given Plaquenil and encouraged to use IS. Pt was able to reach 500 twice in a row, and on the third attempt she reached a bit below. Pt was assisted in getting re-situated in the bed. States she was not in pain beyond the uncomfortable bed.
--- NOTE | 2020-01-29 05:42 | PC.NURSE ---
Pt stuck for lab draw x 2 by this RN. Pt up to BSC, oxygen desaturated to 86%, recovered on 2LNC within 5 minutes. Linen changed at this time. Pt speaking louder and for longer periods of time. Pt pulled 1000 on IS on 2nd attempt. Coughing minimal. Coffee and fresh water provided.
--- NOTE | 2020-01-29 06:59 | PC.NURSE ---
Patient resting in bed with eyes closed. rod mill operator nursing reports patient did well overnight.
[2020-01-29 09:01] LABS: Basophils % 0.5 %; Eosinophils # 0.1 10^3/uL (0.0-0.8); Eosinophils % 3.2 %; Hematocrit 40.7 % (37.0-47.0); Hemoglobin 12.7 g/dL (11.5-15.3); Lymphocytes # 0.9 10^3/uL (0.8-4.8); Lymphocytes % 24.7 %; Mean Corpuscular HGB Conc 31.2 g/dL (30.0-36.0); Mean Corpuscular Hemoglobin 31.6 pg (28.0-34.0); Mean Corpuscular Volume 101.2 fL (81-99); Mean Platelet Volume 11.2 fL (7.4-10.4); Monocytes # 0.5 10^3/uL (0.2-0.9); Monocytes % 12.3 %; Neutrophils # 2.2 10^3/uL (1.8-7.7); Neutrophils % 58.8 %; Nucleated Red Blood Cells % 0 %; Platelet Count 259 10^3/cmm (130-400); Red Blood Count 4.02 10^6/uL (4.1-5.3); Red Cell Distribution Width 11.9 % (12.1-15.1); White Blood Count 3.7 10^3/uL (4.0-10.0)
[2020-01-29 10:08] LABS: Blood Urea Nitrogen 10 mg/dL (6-20); Calcium 9.7 mg/dL (8.5-10.5); Carbon Dioxide 27 mmol/L (22-29); Chloride 98 mmol/L (98-107); Glomerular Filtration Rate 91.3 mL/min (90-130); Glucose 160 mg/dL (65-115); Osmolality Calculated 283 mOsm/kg (285-295); Sodium 137 mmol/L (136-145)
--- NOTE | 2020-01-29 10:24 | PC.NURSE ---
Patient ambulated from bed to commode with only stand by assist on 2L NC. Sats dropped to 86% but patient recovered very quickly. MDI administered and IS used. Patient pulled 1200 on IS. Is now resting in bed watching tv. Denies pain.
--- NOTE | 2020-01-29 13:44 | PM.PN ---
Subjective Subjective: Interval history: Patient awake in bed at time of exam this morning. Reported that her cough continues to feel loose. She stated that headache is resolved. RN at bedside during exam. Vitals/I&O/Wt Last Vital Signs Temp 97.4 F L 01/29/20 11:30 Pulse 78 01/29/20 12:00 Resp 30 H 01/29/20 12:00 BP 98/74 01/29/20 12:00 Pulse Ox 91 01/29/20 12:00 01/28/20 01/29/20 01/29/20 22:59 06:59 14:59 Intake Total 580 / 980 150 / 1130 1000 / 1000 Output Total 680 / 920 250 / 1170 300 / 300 Balance -100 / 60 -100 / -40 700 / 700 Physical Exam Const: COMMON NORMALS: oriented x3 GENERAL APPEARANCE: cooperative ORIENTATION/CONSCIOUSNESS: Yes awake, Yes oriented to person, Yes oriented to place and Yes oriented to time HENMT: COMMON NORMALS: normocephalic and head/scalp atraumatic HEAD & SCALP: normocephalic and atraumatic Eye: COMMON NORMALS: PERRL PUPIL: Yes PERRL Neck/C-Spine: COMMON NORMALS: supple GENERAL: Yes normal visual inspection Resp: EFFORT & INSPECTION: Yes symmetric chest movement and Yes actively coughing AUSCULTATION: no rhonchi and no wheezes Cardio: COMMON NORMALS: regular rate, regular rhythm and no murmurs RATE: regular rate RHYTHM: regular rhythm GI: COMMON NORMALS: soft to palpation and non-tender INSPECTION: No abdominal distension AUSCULTATION: Yes normoactive bowel sounds PALPATION: Yes soft Extremity: COMMON NORMALS: no clubbing, cyanosis or edema and no calf tenderness Neuro: COMMON NORMALS: oriented x3, CN's II-XII intact bilaterally, moves all extremities and no focal motor deficits SENSORIUM/ORIENTATION: Yes oriented to person, Yes oriented to place and Yes oriented to time SPEECH: speech normal Psych: COMMON NORMALS: mental status grossly normal and cooperative Skin: COMMON NORMALS: no rashes or lesions noted GENERAL SKIN EXAM: no rashes or lesions noted Data : 01/29/20 08:45 01/29/20 09:35 A&P Assessment and plan (1) COVID-19 virus infection: COVID-19 PCR positive Improving ferritin, LDH, D-dimer Continue with supportive care and Plaquenil 200mg q12hr. Will complete course overnight Continues to desaturate while moving to bedside commode, however recovering with rest. At rest dropped to 87% on room air, had to be placed back on oxygen at 2L by MI Continue to encourage IS Status: Acute (2) Respiratory failure: COVID 19 viral pnuemonia Continue oxygen per protocol Albuterol PRN Plan for treatment as above Continue with self proning intermittently Status: Acute (3) Pneumonia: Viral pneumonia as above Status: Acute Additional A&P Information Leukopenia: likely secondary to viral illness. DVT ppx: Lovenox Diet: Regular diet Code status: Full code Attestations Medical Necessity Statement*: Requires further hospitalization due to hypoxia with COVID-19 viral pneumonia. 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
[2020-01-29] MEDS: enoxaparin 40 mg/0.4 mL Syringe SUBCUT (14:37)
[2020-01-30] VITALS (34 sets, daily range): BP systolic 91–119; BP diastolic 54–81; PULSE 67–96; RESP 9–32; TEMP 36.7–36.9; O2SAT 89–98
[2020-01-30] MEDS: hydroxychloroquine 200 mg Tablet PO (02:06)
--- NOTE | 2020-01-30 06:47 | PC.NURSE ---
SHIFT SUMMARY PT HAS REMAINED ALERT AND ORIENTATED. PT O2 STILL DROPS ON EXERTION. PT REMAINS ON 2LNC. PT HAS HAD A NONPRODUCTIVE COUGH. PT HAS NOT COMPLAINED OF ANY PAIN OR TROUBLE BREATHING THIS SHIFT. PT IS ABLE TO USE BEDSIDE COMMODE WITH MINIMAL ASSISTANCE. PT REMAINS AFEBRILE THUS FAR.
--- NOTE | 2020-01-30 08:10 | PC.NURSE ---
Upon initial assessment patient resting in bed. Denies pain. Denies headache. Breakfast tray set up and patient fed self breakfast without difficulty. Patient is in good spirits today. O2 currently 92% on 2L.
--- NOTE | 2020-01-30 08:43 | PC.NURSE ---
Dr. Burger at bedside to round on patient.
--- NOTE | 2020-01-30 12:20 | PC.NURSE ---
Patient noted to be slightly hypotensive. Dr. Burger notified. Instructions to encourage fluids. Start NS @ 75.
[2020-01-30] MEDS: sodium chloride 0.9% 1,000 ML 75 ML IV (12:23)
--- NOTE | 2020-01-30 13:02 | PM.PN ---
Subjective Subjective: Interval history: Patient awake in bed this morning at time of exam. Reported continued cough. Denies any chest pain, abdominal pain or nausea. Vitals/I&O/Wt Last Vital Signs Temp 98.0 F 01/30/20 12:14 Pulse 84 01/30/20 12:14 Resp 29 H 01/30/20 12:14 BP 95/67 01/30/20 12:14 Pulse Ox 92 01/30/20 12:14 01/29/20 01/30/20 01/30/20 22:59 06:59 14:59 Intake Total 300 / 1300 200 / 200 Output Total 480 / 780 150 / 930 Balance -180 / 520 -150 / 370 200 / 200 Physical Exam Const: COMMON NORMALS: oriented x3 GENERAL APPEARANCE: cooperative ORIENTATION/CONSCIOUSNESS: Yes awake, Yes oriented to person, Yes oriented to place and Yes oriented to time HENMT: COMMON NORMALS: normocephalic and head/scalp atraumatic HEAD & SCALP: normocephalic and atraumatic Eye: COMMON NORMALS: PERRL PUPIL: Yes PERRL Neck/C-Spine: COMMON NORMALS: supple GENERAL: Yes normal visual inspection Resp: EFFORT & INSPECTION: Yes symmetric chest movement and Yes actively coughing AUSCULTATION: no rhonchi and no wheezes Cardio: COMMON NORMALS: regular rate, regular rhythm and no murmurs RATE: regular rate RHYTHM: regular rhythm GI: COMMON NORMALS: soft to palpation and non-tender INSPECTION: No abdominal distension AUSCULTATION: Yes normoactive bowel sounds PALPATION: Yes soft Extremity: COMMON NORMALS: no clubbing, cyanosis or edema and no calf tenderness Neuro: COMMON NORMALS: oriented x3, CN's II-XII intact bilaterally, moves all extremities and no focal motor deficits SENSORIUM/ORIENTATION: Yes oriented to person, Yes oriented to place and Yes oriented to time SPEECH: speech normal Psych: COMMON NORMALS: mental status grossly normal and cooperative Skin: COMMON NORMALS: no rashes or lesions noted GENERAL SKIN EXAM: no rashes or lesions noted Data : 01/29/20 08:45 01/29/20 09:35 Micro: Microbiology 01/25/20 11:40 Blood Culture - Final Blood NO GROWTH AFTER 5 DAYS 01/25/20 11:42 Blood Culture - Final Blood NO GROWTH AFTER 5 DAYS A&P Assessment and plan (1) COVID-19 virus infection: COVID-19 PCR positive Continue with supportive care and Plaquenil course completed Wean oxygen as tolerated. Continues to have some desaturation into 80s when moving to bedside, however recovery time is much improved Status: Acute (2) Respiratory failure: COVID 19 viral pnuemonia Continue oxygen per protocol Albuterol PRN Plan for treatment as above Continue with self proning intermittently Status: Acute (3) Pneumonia: Viral pneumonia as above Status: Acute Additional A&P Information Hypotension: Will give gentle IVF today, monitor closely DVT ppx: Lovenox Diet: Regular diet Code status: Full code Attestations Medical Necessity Statement*: Patient started on IVF again today, wean oxygen as tolerated. Requires further hospitalization due to COVID-19 viral pneumonia with concern for hypoxemia. 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
[2020-01-30 14:21] LABS: Blood Gas CCRB Time 1330
[2020-01-30] MEDS: enoxaparin 40 mg/0.4 mL Syringe SUBCUT (15:12)
--- NOTE | 2020-01-30 18:45 | PC.NURSE ---
Patient ambulated from bed to toilet inside of room. Portable pulse ox in place for entirety of ambulation. Took approximately 15 steps to toilet. O2 dropped to 82% and HR increased to 103. Became SOB. Ambulated back to bed. Recovered to O2 sat at 92% after approx [address] Burger at bedside for ambulation.
[2020-01-31] VITALS (35 sets, daily range): BP systolic 98–129; BP diastolic 65–88; PULSE 66–88; RESP 8–34; TEMP 36.6–36.8; O2SAT 88–98
--- NOTE | 2020-01-31 02:08 | PC.NURSE ---
Patient up to bs to void. Sats dropped to 88 but returned to 93 very quickly. Arranged to have extension tubing for ambulation in the room . hand division chief wipes at bedside for patients comfort. Patient was crying at 1930 when I went in to assess her. She was feeling overwhelmed. We talked, I held her hand. She got up to void and the crying improved. Box of tissues at bedside with cup to put dirty tissues in. Offered bath and beverages, Patient denied pain at 1930, 2100, 2230, and 0130 when awakened due to apnea alarm. Patient lying on her r side corrupted the signal for respirations.
--- NOTE | 2020-01-31 07:33 | PC.NURSE ---
Upon initial assessment, patient sitting up in bed. O2 extension tubing used and patient ambulated to toilet in room. Sats dropped to 86%and HR increased to 103 but patient recovered quickly and is now back in bed. Sitting up eating breakfast without difficulty.
--- NOTE | 2020-01-31 09:13 | PC.NURSE ---
Morning lab draw obtained by this RN. Patient tolerated well. Dr. Burger rounded and spoke with patient at length regarding improvement, continued care plan, instructions for moving towards discharge, medications, and nursing home care goals. Patient verbalizes understanding and denies further questions at present time. Ambulation and fluid intake encouraged.
[2020-01-31 10:29] LABS: Basophils % 0.8 %; Eosinophils # 0.3 10^3/uL (0.0-0.8); Eosinophils % 6.5 %; Hematocrit 35.8 % (37.0-47.0); Hemoglobin 11.8 g/dL (11.5-15.3); Lymphocytes # 1.3 10^3/uL (0.8-4.8); Lymphocytes % 32.6 %; Mean Corpuscular Hemoglobin 32.7 pg (28.0-34.0); Mean Corpuscular Volume 99.2 fL (81-99); Mean Platelet Volume 11.2 fL (7.4-10.4); Monocytes # 0.6 10^3/uL (0.2-0.9); Monocytes % 15.7 %; Neutrophils # 1.6 10^3/uL (1.8-7.7); Neutrophils % 42.1 %; Nucleated Red Blood Cells % 0 %; Platelet Count 309 10^3/cmm (130-400); Red Blood Count 3.61 10^6/uL (4.1-5.3); Red Cell Distribution Width 11.9 % (12.1-15.1); White Blood Count 3.8 10^3/uL (4.0-10.0)
[2020-01-31 10:44] LABS: Anion Gap 15.3 (5-19); Blood Urea Nitrogen 7 mg/dL (6-20); Carbon Dioxide 27 mmol/L (22-29); Chloride 101 mmol/L (98-107); Ferritin 853 ng/mL (15-150); Glomerular Filtration Rate 78.3 mL/min (90-130); Glucose 95 mg/dL (65-115); Lactate Dehydrogenase 197 U/L (135-214); Osmolality Calculated 284 mOsm/kg (285-295); Potassium 4.3 mmol/L (3.5-5.1); Sodium 139 mmol/L (136-145)
[2020-01-31 10:53] LABS: D Dimer 0.71 ug/mIFEU (0-0.59)
--- NOTE | 2020-01-31 13:20 | PC.NURSE ---
Full bed bath and hair wash performed. Patient tolerated fair. Ambulated to toilet in room. Stood at sink to wash hands. Ambulated back to bed. 1.[address] for activities. Patient did become tachypneic with RR of 30 for a few seconds but denied SOB. Is now resting in bed watching tv. Dr. Burger to bedside and instructions to titrate O2 down to 1L. Sats now 93% on 1L O2.
--- NOTE | 2020-01-31 14:18 | P.PN_ITS ---
Subjective Subjective: Interval history: Patient awake in bed today at time of exam. Reported cough that is more productive. Denies any chest pain or abdominal pain. No nausea. Able to wean oxygen to 1.5L but continues to desat when getting up to bathroom. Vitals/I&O/Wt Last Vital Signs Temp 97.9 F 01/31/20 08:00 Pulse 72 01/31/20 12:00 Resp 24 H 01/31/20 12:00 BP 111/78 01/31/20 12:00 Pulse Ox 91 01/31/20 12:00 01/30/20 01/31/20 01/31/20 22:59 06:59 14:59 Intake Total 500 / 700 1500 / 1500 Output Total 550 / 550 400 / 950 Balance -50 / 150 -400 / -250 1500 / 1500 Physical Exam Const: COMMON NORMALS: oriented x3 GENERAL APPEARANCE: cooperative ORIENTATION/CONSCIOUSNESS: Yes awake, Yes oriented to person, Yes oriented to place and Yes oriented to time HENMT: COMMON NORMALS: normocephalic and head/scalp atraumatic HEAD & SCALP: normocephalic and atraumatic Eye: COMMON NORMALS: PERRL PUPIL: Yes PERRL Neck/C-Spine: COMMON NORMALS: supple GENERAL: Yes normal visual inspection Resp: EFFORT & INSPECTION: Yes symmetric chest movement and Yes actively coughing AUSCULTATION: no rhonchi and no wheezes Cardio: COMMON NORMALS: regular rate, regular rhythm and no murmurs RATE: regular rate RHYTHM: regular rhythm GI: COMMON NORMALS: soft to palpation and non-tender INSPECTION: No abdominal distension AUSCULTATION: Yes normoactive bowel sounds PALPATION: Yes soft Extremity: COMMON NORMALS: no clubbing, cyanosis or edema and no calf tenderness Neuro: COMMON NORMALS: oriented x3, CN's II-XII intact bilaterally, moves all extremities and no focal motor deficits SENSORIUM/ORIENTATION: Yes oriented to person, Yes oriented to place and Yes oriented to time SPEECH: speech normal Psych: COMMON NORMALS: mental status grossly normal and cooperative Skin: COMMON NORMALS: no rashes or lesions noted GENERAL SKIN EXAM: no rashes or lesions noted Data : 01/31/20 08:35 01/31/20 08:35 Micro: Microbiology 01/25/20 11:40 Blood Culture - Final Blood NO GROWTH AFTER 5 DAYS 01/25/20 11:42 Blood Culture - Final Blood NO GROWTH AFTER 5 DAYS A&P Assessment and plan (1) COVID-19 virus infection: COVID-19 PCR positive Completed Plaquenil treatment Remains hypoxic with activity. Oxygen saturation dropped to 86% today while on O2 when using commode. This is improved from previous days, will continue to wean as tolerated and plan for discharge when able to ambulate to bedside commode without desaturations Status: Acute (2) Respiratory failure: COVID 19 viral pnuemonia Isolation precautions, contact and Droplet Albuterol PRN Continue with self proning intermittently Status: Acute (3) Pneumonia: Viral pneumonia as above Status: Acute Additional A&P Information Hypotension: now resolved with IVF DVT ppx: Lovenox Diet: Regular diet Code status: Full code Attestations Medical Necessity Statement*: Patient requires further hospitalization due to COVID-19 viral pneumonia with continued desaturations. 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
[2020-01-31] MEDS: enoxaparin 40 mg/0.4 mL Syringe SUBCUT (15:39)
--- NOTE | 2020-01-31 19:33 | PC.NURSE ---
NOTABLE DIMINISHED LUNG SOUNDS ON RIGHT FIELD, LEFT CLEAR . RESTING IN BED ON ROOM AIR SATS 87. PLACED HER ON ONE LITER AND SHE DID NOT IMPROVE BEYOND 90% SO INCREASED TO 2LITERS. HEART RATE IMMEDIATELY DOWN WITH WITH IMPROVED OXYGENATION. CALMER TODAY. DENIED PAIN. SMALL DRY COUGH NOTED. ENCOURAGED IS AND DEEP BREATHING.
[2020-02-01] VITALS (46 sets, daily range): BP systolic 91–119; BP diastolic 52–78; PULSE 59–97; RESP 1–28; TEMP 36.6–36.9; O2SAT 90–98
--- NOTE | 2020-02-01 03:33 | PC.NURSE ---
PATIENT UP TO VOID. WALKED TO BATHROOM WITH OXYGEN MAINTAINED SATS OF 92 WITH A HEART RATE OF 102. RETURNED TO BED WITHOUT ANY DROP IN SATS. HREART RATE CAME DOWN TO 88 QUICKLY. DENIES PAIN , NO COUGH. LEFT LUNG FIELD CLEAR BUT DIMINISHED, RIGHT REMAINS DIMINISHED WITH POSSIBLE RALE ON DEEP BREATHING.
--- NOTE | 2020-02-01 04:26 | PC.NURSE ---
LATE ENTRY, IV COMPLETED AT 0130 01/30. NO FURTHER DOSES NECESSARY PER DR ZHOU. ORDER D/VIN. IV SALINE LOCK REMOCED ON SHIFT
--- NOTE | 2020-02-01 07:24 | PC.NURSE ---
Upon initial assessment patient on 2L resting in bed. Sats 95%. Titrated O2 to 1L. A&O. Answers questions appropriately. Ambulated from bed to toilet in room. Sats dropped to 89% but recovered quickly. Patient now sitting up on side of bed feeding self breakfast. sats 91%.
--- NOTE | 2020-02-01 09:17 | PC.NURSE ---
O2 off for now. Sats holding at 92% while resting in bed.
[2020-02-01] MEDS: enoxaparin 40 mg/0.4 mL Syringe SUBCUT (15:00)
--- NOTE | 2020-02-01 15:22 | PM.PN ---
Subjective Subjective: Interval history: Awake this morning at time of exam. Reported feeling better today. RN from overnight reported that patient had desaturation to 86% while on RA, had to be placed back on 2L by NC. Vitals/I&O/Wt Last Vital Signs Temp 98.0 F 02/01/20 11:00 Pulse 77 02/01/20 14:00 Resp 24 H 02/01/20 14:00 BP 108/69 02/01/20 14:00 Pulse Ox 91 02/01/20 14:00 02/01/20 02/01/20 02/01/20 06:59 14:59 22:59 Intake Total 1974 300 / 300 Balance 1974 300 / 300 Physical Exam Const: COMMON NORMALS: oriented x3 GENERAL APPEARANCE: cooperative ORIENTATION/CONSCIOUSNESS: Yes awake, Yes oriented to person, Yes oriented to place and Yes oriented to time HENMT: COMMON NORMALS: normocephalic and head/scalp atraumatic HEAD & SCALP: normocephalic and atraumatic Eye: COMMON NORMALS: PERRL PUPIL: Yes PERRL Neck/C-Spine: COMMON NORMALS: supple GENERAL: Yes normal visual inspection Resp: EFFORT & INSPECTION: Yes symmetric chest movement AUSCULTATION: no rhonchi and no wheezes Cardio: COMMON NORMALS: regular rate, regular rhythm and no murmurs RATE: regular rate RHYTHM: regular rhythm GI: COMMON NORMALS: soft to palpation and non-tender INSPECTION: No abdominal distension AUSCULTATION: Yes normoactive bowel sounds PALPATION: Yes soft Extremity: COMMON NORMALS: no clubbing, cyanosis or edema and no calf tenderness Neuro: COMMON NORMALS: oriented x3, CN's II-XII intact bilaterally, moves all extremities and no focal motor deficits SENSORIUM/ORIENTATION: Yes oriented to person, Yes oriented to place and Yes oriented to time SPEECH: speech normal Psych: COMMON NORMALS: mental status grossly normal and cooperative Skin: COMMON NORMALS: no rashes or lesions noted GENERAL SKIN EXAM: no rashes or lesions noted Data : 01/31/20 08:35 01/31/20 08:35 A&P Assessment and plan (1) COVID-19 virus infection: COVID-19 PCR positive Completed Plaquenil treatment Wean to RA today, had desaturation overnight and had to be placed back on 2L by NC Will mask and ambulate halls today, wean to RA as tolerated. Possible discharge to home tomorrow if able to remain on RA overnight Status: Acute (2) Respiratory failure: COVID 19 viral pnuemonia Isolation precautions, contact and Droplet Albuterol PRN Intermittent self proning Status: Acute (3) Pneumonia: Viral pneumonia as above Status: Acute Additional A&P Information DVT ppx: Lovenox Diet: Regular diet Code status: Full code Attestations Medical Necessity Statement*: Requires further hospitalization to titrate down oxygen requirements with hypoxia secondary to COVID-19 viral pneumonia. Coding Level of Care Code Acute Field Assessor for [facility] Fwd Diagnoses COVID-19 virus infection U07.1 Respiratory failure J96.90 Pneumonia J18.9
--- NOTE | 2020-02-01 17:12 | PC.NURSE ---
Patient has shown much improvement over this shift when compared to previous days. She ambulated approx 500 steps within unit without O2 and sats dropped to 90%. O2 remains off and patient's sats are between 90 and 95% and holding. IS use encourage and patient is now pulling 2000. Adequate urine output. Patient continues to deny pain.
[2020-02-01] MEDS: acetaminophen 325 mg Tablet 650 MG PO (19:36)
[2020-02-01] MEDS: guaiFENesin 100 mg/5 mL UDC 10 mL 400 MG PO (19:39)
[2020-02-02] VITALS (17 sets, daily range): BP systolic 97–113; BP diastolic 62–81; PULSE 65–89; RESP 4–29; TEMP 36.4–36.8; O2SAT 90–96
--- NOTE | 2020-02-02 03:08 | PC.NURSE ---
NOTED A SINUS ARRYTHMIA AND A VERY SHORT RUN OF BRADICARDIA AROUND MIDNIGHT. SHE HAD A BRIEF DROP TO 89 BUT RECOVERED QUICKLY WITHOUT OXYGEN. PATIENT IS TOLERATING SLEEPING AT A 20% INCLINE OF THE HOB.
--- NOTE | 2020-02-02 07:26 | PC.NURSE ---
Upon initial assessment patient resting in bed. Ambulated to toilet in room without O2. Maintained sats 92%. Ambulated patient around unit. Tolerated well. Sats remained greater than 90%. Patient now sitting up on side of bed eating breakfast.
--- NOTE | 2020-02-02 09:05 | PC.NURSE ---
Dr. Burger at bedside to round on patient. Spoke at length with patient about plan for discharge date of today. Again educated on importance of following CDC guidelines upon discharge for patient and family. Patient verbalizes understanding. Patients questions answered and patient denies further questions at present time.
--- NOTE | 2020-02-02 09:22 | PM.DCS ---
Discharge Providers Date of Admission: 01/25/20 13:14 Date of Discharge: February 02, 2020 Attending Provider at Admission: Yevgeniy Nevarez MD Attending Provider at Discharge: Sadni Burger DO Primary Care Provider: Clau Arrington DO Diagnoses at Discharge Discharge Diagnosis (1) COVID-19 virus infection: Status: Acute (2) Respiratory failure: Status: Acute (3) Pneumonia: Status: Acute Reason for Visit Reason for Visit: Reason For Visit: Coughing/lung pain/chest pains Hospital Course Hospital Course: Patient was seen and evaluated in the ED and noted to have concern for pneumonia and specific concern for viral pneumonia. She was placed on contact and droplet precautions and admitted to the ICU. Due to concern for COVID-19 viral infection she was started on Plaquenil, risks and benefits were discussed with patient about the current research on the medication as treatment for COVID-19. She was noted to have acute respiratory failure with increased respiratory rate, hypoxia and sepsis secondary to pneumonia. She was tested for COVID-19 and result returned positive. Patient was continued on isolation precautions and transferred to the viral unit. She continued to have desaturations, tachypnea and fever. Plaquenil course was completed, provided for 5 days total. She tolerated oral diet, regular diet. This gradually, and slowly improved over the course of her hospitalization. Patient was given IVF, NS and blood pressure and heart rate were monitored closely. Oxygen requirement was up to 4L at one point of during hospitalization and this was gradually weaned as tolerated. On date of discharge she was sitting up in bed and reported improvement in symptoms, improved cough and shortness of breath. She was able to ambulate the halls and maintained saturations above 90%. Discussed with patient plan to discharge to home, she verbalized understanding and agreed with plan. Physical Exam Const: COMMON NORMALS: oriented x3 GENERAL APPEARANCE: cooperative ORIENTATION/CONSCIOUSNESS: Yes awake, Yes oriented to person, Yes oriented to place and Yes oriented to time HENMT: COMMON NORMALS: normocephalic and head/scalp atraumatic HEAD & SCALP: normocephalic and atraumatic Eye: COMMON NORMALS: PERRL PUPIL: Yes PERRL Neck/C-Spine: COMMON NORMALS: supple GENERAL: Yes normal visual inspection Resp: EFFORT & INSPECTION: Yes symmetric chest movement AUSCULTATION: no rhonchi and no wheezes Cardio: COMMON NORMALS: regular rate, regular rhythm and no murmurs RATE: regular rate RHYTHM: regular rhythm GI: COMMON NORMALS: soft to palpation and non-tender INSPECTION: No abdominal distension AUSCULTATION: Yes normoactive bowel sounds PALPATION: Yes soft Extremity: COMMON NORMALS: no clubbing, cyanosis or edema and no calf tenderness Neuro: COMMON NORMALS: oriented x3, CN's II-XII intact bilaterally, moves all extremities and no focal motor deficits SENSORIUM/ORIENTATION: Yes oriented to person, Yes oriented to place and Yes oriented to time SPEECH: speech normal Psych: COMMON NORMALS: mental status grossly normal and cooperative Skin: COMMON NORMALS: no rashes or lesions noted GENERAL SKIN EXAM: no rashes or lesions noted Discharge Data Data Completed and Pending: Completed Studies During Hospitalization Category Date Time Status XR chest 1V nir ble [id number] Stat Exams 01/25/20 11:12 Completed Pending at discharge Category Date Time Status Basic Metabolic P poli AM LABS Lab 01/26/20 04:00 Ordered Complete Blood Co unt w/Auto AM LABS Lab 01/26/20 04:00 Ordered Sputum Culture an d Gram Stain Stat Lab 01/25/20 11:12 Uncollected Addt'l Data from Hospital Stay: Micro:Microbiology 01/25/20 11:42 Blood Culture - Preliminary Blood SPECIMEN COLLECTED 01/25/20 11:40 Blood Culture - Preliminary Blood SPECIMEN COLLECTED Other data: D-dimer is elevated at 2.54 pH 7.54, PCO2 24, PO2 102. Elevated ferritin at 1777 Elevated LDH at 371 Influenza swab negative hCG negative Chest x-ray shows bilateral lower lobe infiltrates, no consolidation, plate-like atelectasis right upper lobe Vitals: Last Vital Signs Temp 97.6 F 02/02/20 08:00 Pulse 81 02/02/20 08:00 Resp 20 H 02/02/20 08:00 BP 98/78 02/02/20 08:00 Pulse Ox 93 02/02/20 08:00 Discharge Plan Discharge Patient Disposition: Home, Self-Care Condition: Stable Prescriptions: New Ventolin HFA 90 mcg/actuation Hfa Aerosol Inhaler 2 puff inhalation Q4H.RESPIRATORY PRN (Reason: Shortness Of Breath) Qty: 0 RF: 0 Continued No Known Home Medications RF: 0 Discharge Orders: Discharge Order (Routine); Ordered 02/02/20 Ordered By: Sandi Burger Referrals: Clau Arrington, [Primary Care Provider] - 1-3 days (Follow up with Dr. Arrington on 02/03/20 at 10:30am for tele-health visit. Nurse will call you prior to appointment Recommend repeat 2 view CXR in 2-4 weeks to be set up by PCP) Discharge Diet: Advance as tolerated and Regular Discharge Activity: Increase activity as tolerated Activity Restrictions/Additional Instructions: Follow up with Dr. Arrington as scheduled tomorrow, 02/02 at 1030, via telehealth visit. Continue with tylenol 325-650mg every 6hrs as needed for pain or fever. Ibuprofen can be used as needed for pain or fever, 400mg every 8hrs as needed. Albuterol inhaler sent home with you, use this along with the spacer as needed every 4-6hrs for shortness of breath. Gradually increase activity as tolerated, no running until gradually increased activity over the next 1-2 weeks. Please refrain from any heavy lifting due to this requiring increase oxygen demands. You tested positive for, and were treated for COVID-19 viral pneumonia. Please continue with proper hand hygiene at home and continue with quarantine as directed. Return to work recommendations from the CDC were discussed. Please refer to hand out provided from the CDC. Avoid public places at this time, as recommended. Please call your physician or present to the ED for any acute illness or concern. If you develop any chest pain or increased shortness of breath please present to the ER. If you have any post-discharge questions or concerns please call and ask for Dr. Burger. Discharge Attestations Time Spent in Discharge Care*: greater than 30 min Quality Metrics Clinical Quality Measures During this hospital stay, did patient experience: None Coding Level of Care Code Acute Grazing Examiner for [facility] Fwd Diagnoses COVID-19 virus infection U07.1 Respiratory failure J96.90 Pneumonia J18.9
--- NOTE | 2020-02-02 10:34 | PC.NURSE ---
Prepping patient for discharge now. Dr. 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 Going over final discharge teaching now.
--- NOTE | 2020-02-02 11:55 | PC.NURSE ---
Patient out of facility at 11:38. Contacted security for transport assist to ensure hallway remain clear. Transported in PPE via wheelchair to side exit. arrived to pick patient up.
== END 2020-02-02 11:38 | disposition home or self-care (01) | DRG 177 ==
LOC: ER 12:29 → ICU 13:41
PROVIDERS: Admitting Provider Internal Medicine; Emergency Provider Family Medicine; Family Provider Family Medicine; PCP Family Medicine; Visit Provider Family Medicine
DX: U07.1 COVID-19 (principal); A41.9 Sepsis, unspecified organism; J96.01 Acute respiratory failure with hypoxia; J12.89 Other viral pneumonia; J98.11 Atelectasis; N17.9 Acute kidney failure, unspecified
CPT/HCPCS: 12345; 36415; 36600; 71045; 80048; 80051; 80053; 82550; 82728; 82803; 82810; 83605; 83615; 83735; 83986; 84703; 85025; 85378; 87040; 87635; 87804; 93005; 94640; 96372; 99283; J1650; J1956; J2020; J2543; J7030; Q0144

== ENCOUNTER 2020-02-16 10:34 | Outpatient (CLI) | payer BC, SELFPAY ==
--- NOTE | 2020-02-16 10:46 | XR_ITS ---
WS: [id number] CHEST 2 VIEWS HISTORY: SOB COMPARISON: 01/25/2020 Lungs: Significant improvement in aeration bilaterally. Previously described areas of atelectasis and airspace disease have resolved. Cardiac size: Normal. Mediastinum/Aorta: Normal mediastinum. Bones: RIGHT convex curvature thoracic spine. XR/XR chest 2V* [id number] IMPRESSION: Interval resolution of bilateral opacifications described on 01/25/2020.
== END 2020-02-16 10:35 | disposition home or self-care (01) ==
PROVIDERS: Family Provider Family Medicine; PCP Family Medicine; Visit Provider Family Medicine
DX: R06.02 Shortness of breath (principal); J18.9 Pneumonia, unspecified organism; U07.1 COVID-19
CPT/HCPCS: 71046